=== PATIENT | male | born 1965 | race Asian ===

== ENCOUNTER → 2020-10-08 | Outpatient (CLI) | payer BC ==
[~2020-10-08] VITALS: Ht 167.6 cm; Wt 63.5 kg
== END | disposition home or self-care (01) ==
LOC: Rad HDHVI 10:20
PROVIDERS: ATTEND Internal Medicine Cardiovascular Disease
DX: I25.10 Atherosclerotic heart disease of native coronary artery without angina pectoris (principal); Z13.9 Encounter for screening, unspecified
CPT/HCPCS: 78452; 93017; 96374; A9500